=== PATIENT | male | born 1955 | race Caucasian/White ===

== ENCOUNTER 2017-06-26 06:33 | Day surgery (SDC) | payer BC, MEDICARE ==
[~2017-06-26 06:33] MED LIST: ACETAMINOPHEN 1,000 MG/100 ML BTL IV ONE
[2017-06-26] MEDS ORDERED: LIDOCAINE PF 0.5% (5MG/ML) 50ML VIAL IV ONE (06:34)
[2017-06-26] MEDS ORDERED: PROPOFOL 10 MG/ML VIAL IV ONE (06:34)
[2017-06-26] MEDS ORDERED: CLINDAMYCIN 600MG/50ML PREMIX 600 MG/50 ML BAG IVPB ONE (06:34)
[2017-06-26] MEDS ORDERED: MIDAZOLAM HCL 2MG/2ML VIAL IV ONE (06:34)
[2017-06-26] MEDS ORDERED: *PACU ONLY* KETAMINE HCL 10 MG/ML (20ML) VIAL IV ONE (06:34)
[2017-06-26 07:06] LABS: BLOOD UREA NITROGEN 12 mg/dL (8-23); EST GLOMERULAR FILTRATION RATE > 60 mL/min; GLUCOSE,RANDOM 101 mg/dL (74-109)
--- NOTE | 2017-06-26 13:20 | Operative Note ---
DATE OF SURGERY: 06/26/2017 Surgeon: Israel Daugherty D.O. REFERRING PHYSICIAN: Soha Carlos D.O. PREOPERATIVE DIAGNOSIS: Carpal tunnel syndrome of the left wrist. POSTOPERATIVE DIAGNOSIS: Carpal tunnel syndrome of the left wrist. OPERATION: Decompression left median nerve of the wrist using 3.5 loupe magnification. PROCEDURE: This 62-year-old male was taken to the operating room and placed in the supine position on the operating room table. Waterman block anesthesia was induced, and the left upper extremity was elevated. It was prepped with Hibiclens and draped in the usual sterile fashion. Before the Waterman block anesthesia, the tourniquet had been inflated to 250 mm Hg. A palmar incision was utilized following the hypothenar crease from the level of the base of the web space of the thumb to the flexor crease of the wrist and resection was carried down to the skin and subcutaneous tissue. Hemostasis was obtained with electrocautery. The palmar fascia was divided in line with the skin of the incision. The flexor retinaculum was identified, punctured, and split to its proximal margin with the contents of the carpal tunnel noted under direct vision. The transverse carpal ligament was then transected along its ulnar border, and the radial flap was raised to expose the entire median nerve under the transverse carpal ligament. The recurrent motor branch in the median nerve was identified and found to be normal. The wound was irrigated and, again, hemostasis was obtained with electrocautery, and the wound closed with interrupted 6-0 nylon suture. Sterile dressings were applied with plaster splint immobilization with the wrist in slight dorsiflexion and found in an adducted position. GROSS PATHOLOGY: This patient's median nerve appeared relatively normal on gross examination. [facility]
== END 2017-06-26 10:45 | disposition home or self-care (01) ==
LOC: SUR 06:33
PROVIDERS: ATTEND Orthopaedic Surgery
DX: G56.02 Carpal tunnel syndrome, left upper limb (principal); I48.91 Unspecified atrial fibrillation; Z79.01 Long term (current) use of anticoagulants; E11.9 Type 2 diabetes mellitus without complications; Z79.84 Long term (current) use of oral hypoglycemic drugs; E78.00 Pure hypercholesterolemia, unspecified; E03.9 Hypothyroidism, unspecified; Z95.810 Presence of automatic (implantable) cardiac defibrillator
CPT/HCPCS: 80048; J3490

== ENCOUNTER 2017-07-19 17:08 | Emergency (ER) | payer BC, MEDICARE ==
--- NOTE | 2017-07-19 17:35 | Emergency Department Record ---
History of Present Illness - General Chief Complaint: Abdominal Pain Stated Complaint: STOMACH CRAMPS Time Seen by Provider: 07/19/17 17:30 Source: Patient, Family Mode of Arrival: Ambulatory Limitations: No limitations - History of Present Illness Initial Comments: 62 yo male presents with mid abdominal pain, poor appetite, nausea and vomiting. The patient and his family report that he had had some nausea and vomiting with eating over the last two weeks. Starting 2 days ago he developed mid to lower abdominal pain with the with his symptoms. The pain has become constant at this point in time. No fever. He is urinating and having bowel movements. He has a history of gall bladder removal and gastric bypass (2007 - does not recall his surgeons). PCP is Dr He at [facility]. Complaint: Abdominal pain Onset/Timin -: Days(s) Location: Periumbilical Radiation: None Severity: Severe Quality: Other Consistency: Constant Improves With: Nothing Worsens With: Nothing Associated Symptoms: Nausea Treatments Prior to Arrival: Other - Related Data Home Medications Medication Instructions Recorded Confirmed Last Taken Hydrocodone/Acetaminophen [Weir 1 tab PO Q6H PRN 07/19/17 07/19/17 Unknown 5mg/325mg] Lidocaine Patch [Lidoderm] 1 ea TOP ASDIR 07/19/17 07/19/17 07/19/17 Simvastatin [Zocor] 20 mg PO DAILY 07/19/17 07/19/17 07/18/17 Trazodone HCl [Desyrel] 50 mg PO QHS 07/19/17 07/19/17 07/18/17 Allergies Allergy/AdvReac Type Severity Reaction Status Date / Time acetaminophen [From Vicodin] Allergy HIVES Verified 07/19/17 17:14 diazepam [From Valium] Allergy HIVES Verified 07/19/17 17:14 hydrocodone bitartrate Allergy HIVES Verified 07/19/17 17:14 [From Vicodin] Penicillins Allergy HIVES Verified 07/19/17 17:14 clonazepam [From Klonopin] AdvReac NAUSEA Verified 07/19/17 17:14 Travel Screening - Travel/Exposure Within Last 30 Days Have you traveled within the last 30 days?: No - Travel/Exposure Within Last Year Have you traveled outside the [place] in the last year?: No - Additonal Travel Details Have you been exposed to anyone with a communicable illness?: No - Travel Symptoms Symptom Screening: None Review of Systems Constitutional: Reports: Malaise, Weakness. Denies: Chills, Fever Eyes: Denies: Eye discharge, Eye pain, Photophobia, Vision change ENT: Denies: Congestion, Throat pain Respiratory: Denies: Cough, Dyspnea, Hemoptysis, Stridor, Wheezes Cardiovascular: Denies: Chest pain, Palpitations, Syncope Endocrine: Denies: Fatigue Gastrointestinal: Reports: As per HPI, Abdominal pain, Nausea, Vomiting. Denies : Constipation, Diarrhea, Hematemesis, Hematochezia, Melena Genitourinary: Denies: Dysuria, Frequency, Hematuria Musculoskeletal: Denies: Arthralgia, Back pain, Neck pain Skin: Denies: Bruising, Change in color, Rash Neurological: Denies: Headache, Numbness, Weakness Psychiatric: Denies: Anxiety Hematological/Lymphatic: Denies: Blood Clots, Easy bleeding, Easy bruising, Swollen glands Past Medical History - SOCIAL HISTORY Smoking Status: Never smoker Alcohol Use: None Drug Use Detail:: Marijuana - RESPIRATORY Hx Respiratory Disorders: Yes Hx Bronchitis: Yes (hx) Hx Pneumonia: Yes (hx) Hx Sleep Apnea: Yes Hx of CPAP: No - CARDIOVASCULAR Hx Cardio Disorders: Yes Hx Abnormal EKG: Yes Hx CHF: Yes (in past) Hx Heart Attack: Yes (19 years) Hx Hypertension: Yes Hx Irregular Heartbeat: Yes (not sure what abnormal rhythm/ afib) Hx Pacemaker/Defib: Yes (2012 pt has blood clot behind defib. found after gallbladder sx.) Hx Coronary Artery Disease: Yes Comment:: had ICD checked 9-17-15 pacer had gone off 3 times. - NEURO Hx Neuro Disorders: Yes Hx Neuropathy: Yes (bilat legs and hands) Hx TIA: Yes (affected vision 2006) - GI Hx GI Disorders: Yes Hx Wt Loss/Wt Gain: Yes (280 lb wt loss since bypass) - Hx Genitourinary Disorders: No - ENDOCRINE Hx Endocrine Disorders: Yes Hx Diabetes: Yes Hx Thyroid Disease: Yes Comment:: does not check at home; blood work only - MUSCULOSKELETAL Hx Musculoskeletal Disorders: Yes Hx Arthritis: Yes (DDD) Hx Fibromyalgia: Yes Hx Osteoporosis: Yes Comment:: chronic low back and leg pain - PSYCH Hx Psych Problems: Yes Hx Anxiety: Yes Hx Depression: Yes Hx Emotional Abuse: No Hx Suicide Attempt: Yes (early 2016) - HEMATOLOGY/ONCOLOGY Hx Hematology/Oncology Disorders: Yes Hx Bruising: Yes Hx Cancer: Yes (leukemia in remission CA free) Hx Chemotherapy: Yes Hx Clotting Problems: Yes (clot behind defib [id number] ; no longer on blood thinners) Family Medical History Any Significant Family History?: Yes Hx Heart Disease: Mother Hx Kidney Disease: Father Hx Liver Disease: Brother/Sister *Liver Comment: hep b Physical Exam - General General Appearance: Alert, Oriented x3, Cooperative, No acute distress Limitations: No limitations - Head Head exam: Atraumatic, Normocephalic, Normal inspection - Eye Eye exam: Normal appearance. negative: Conjunctival injection, Periorbital swelling, Scleral icterus - ENT ENT exam: Normal exam Ear exam: Normal external inspection Nasal Exam: Normal inspection Mouth exam: Normal external inspection - Neck Neck exam: Normal inspection - Respiratory Respiratory exam: Normal lung sounds bilaterally. negative: Respiratory distress - Cardiovascular Cardiovascular Exam: Regular rate, Normal rhythm, Normal heart sounds Peripheral Pulses: 2+: Radial (R), Radial (L) - GI/Abdominal GI/Abdominal exam: Soft, Tenderness, Other (The abdominal examination is very soft but tender. He is diffusely tender. He states he is most tender in the area around and below the umbilicus) - Rectal Rectal exam: Deferred - exam: Deferred - Extremities Extremities exam: Normal inspection, Full ROM, Normal capillary refill. negative: Tenderness - Back Back exam: Reports: Normal inspection, Full ROM. Denies: CVA tenderness (R), CVA tenderness (L), Muscle spasm, Rash noted, Tenderness - Neurological Neurological exam: Alert, Normal gait, Oriented X3 - Psychiatric Psychiatric exam: Normal affect, Normal mood - Skin Skin exam: Dry, Intact, Normal color, Warm Course Vital Signs 07/19/17 07/19/17 17:17 17:20 Temperature 98.2 F 98.2 F Pulse Rate [ 88 Pulse Ox Probe] Respiratory 20 20 Rate Blood Pressure 150/115 [Right Arm] Pulse Ox 97 97 - Reevaluation(s) Reevaluation #1: 07/19/17 18:16 The CBC was reviewed No acute changes No acute changes on the CMP except BUN 30 The lactic acid is normal 07/19/17 19:[address] scan was signed out to Dr Gabino Refer to his chart for further documentation and disposition Medical Decision Making - Lab Data Result diagrams: 07/19/17 17:45 07/19/17 17:45 Disposition Disposition: Transfer Clinical Impression: Abdominal pain Qualifiers: Abdominal location: unspecified location Qualified Code(s): R10.9 - Unspecified abdominal pain Disposition: Acute Care Hospital Transfer Transfer To: [facility] Reason For Transfer: Abdominal pain consultation Accepting Physician: Patrick Time Discussed w/Accepting Physician: 21:00 Condition: (2) Stable Forms: Patient Portal Access Time of Disposition: 21:00 Quality - Quality Measures Quality Measures: N/A - Blood Pressure Screening Does Patient Have Any of the Following: No Blood Pressure Classification: Normal BP Reading Systolic Measurement: 115 Diastolic Measurement: 67 Screening for High Blood Pressure: < Normal BP, F/U Not Required > [G8783] Pre-Hypertensive Follow-up Interventions: Referral to alternative/primary care provider.
[2017-07-19] MEDS ORDERED: PANTOPRAZOLE SODIUM IV 40 MG VIAL IVP ONE (17:45)
[2017-07-19] MEDS ORDERED: 0.9 % SODIUM CHLORIDE 1,000 ML BAG IV ONE (17:45)
[2017-07-19] MEDS ORDERED: ONDANSETRON HCL IV 4 MG/2 ML VIAL IV ONE (17:45)
[2017-07-19] MEDS ORDERED: HYDROMORPHONE HCL 1 MG/ML SYRINGE IVP ONE ×2 (17:46→18:31)
[2017-07-19 18:06] LABS: EOS % 0.4 % (0-6); GRAN % 78.5 % (47-80); HEMATOCRIT 43.4 % (42.0-52.0); LYMPH % 14.2 % (16-45); MEAN CELL VOLUME 90.4 fl (81-97); MEAN CORPUSCULAR HEMOGLOBIN 31.3 pg (27-33); MEAN CORPUSCULAR HGB CONC 34.6 g/dl (32-36); MEAN PLATELET VOLUME 9.7 fl (7.4-10.4); MONO % 6.9 % (0-9); PLATELET COUNT 130 K/uL (130-400); RED CELL DISTRIBUTION WIDTH 13.2 % (11.5-14.5); WHITE BLOOD COUNT W/O DIFF 6.7 K/uL (4.2-12.2)
[2017-07-19 18:17] LABS: BLOOD UREA NITROGEN 30 mg/dL (8-23); EST GLOMERULAR FILTRATION RATE > 60 mL/min; INR 1.05; PARTIAL THROMBOPLASTIN TIME 24.7 SECONDS (24.5-39.1); PROTHROMBIN TIME (PATIENT) 11.4 SECONDS (9.5-12.1)
[2017-07-19 18:18] LABS: TOTAL PROTEIN 7.7 g/dL (6.6-8.7)
[2017-07-19 18:20] LABS: GLUCOSE,RANDOM 191 mg/dL (74-109)
[2017-07-19 18:22] LABS: ALT/SGPT 23 U/L (<41)
[2017-07-19 18:23] LABS: ALBUMIN 4.5 g/dL (4.0-5.0); ALKALINE PHOSPHATASE 95 U/L (40-129); AST/SGOT 47 U/L (10.0-50.0); LIPASE 27 U/L (13-60)
[2017-07-19 18:28] LABS: BILIRUBIN,DIRECT < 0.2 mg/dL (0-0.3)
[2017-07-19] MEDS ORDERED: ONDANSETRON HCL IV 4 MG/2 ML VIAL IVP ONE (18:31)
[2017-07-19] MEDS ORDERED: DIAZEPAM 5 MG/1 ML TUBX IVP ONE (18:53)
[2017-07-19] MEDS ORDERED: KETOROLAC 30 MG/ML VIAL IVP ONE (20:18)
--- NOTE | 2017-07-19 21:14 | Emergency Department Record ---
History of Present Illness - General Chief Complaint: Abdominal Pain Stated Complaint: STOMACH CRAMPS Time Seen by Provider: 07/19/17 17:30 Source: Patient, Family Mode of Arrival: Ambulatory Limitations: No limitations - History of Present Illness MD Complaint: Abdominal pain Onset/Timin -: Days(s) Location: Periumbilical Radiation: None Severity: Severe Quality: Other Consistency: Constant Improves With: Nothing Worsens With: Nothing Associated Symptoms: Nausea Treatments Prior to Arrival: Other - Related Data Home Medications Medication Instructions Recorded Confirmed Last Taken Hydrocodone/Acetaminophen [Erwin 1 tab PO Q6H PRN 07/19/17 07/19/17 Unknown 5mg/325mg] Lidocaine Patch [Lidoderm] 1 ea TOP ASDIR 07/19/17 07/19/17 07/19/17 Simvastatin [Zocor] 20 mg PO DAILY 07/19/17 07/19/17 07/18/17 Trazodone HCl [Desyrel] 50 mg PO QHS 07/19/17 07/19/17 07/18/17 Allergies Allergy/AdvReac Type Severity Reaction Status Date / Time acetaminophen [From Vicodin] Allergy HIVES Verified 07/19/17 17:14 diazepam [From Valium] Allergy HIVES Verified 07/19/17 17:14 hydrocodone bitartrate Allergy HIVES Verified 07/19/17 17:14 [From Vicodin] Penicillins Allergy HIVES Verified 07/19/17 17:14 clonazepam [From Klonopin] AdvReac NAUSEA Verified 07/19/17 17:14 Travel Screening - Travel/Exposure Within Last 30 Days Have you traveled within the last 30 days?: No - Travel/Exposure Within Last Year Have you traveled outside the [place] in the last year?: No - Additonal Travel Details Have you been exposed to anyone with a communicable illness?: No - Travel Symptoms Symptom Screening: None Review of Systems Constitutional: Reports: Malaise, Weakness. Denies: Chills, Fever Eyes: Denies: Eye discharge, Eye pain, Photophobia, Vision change ENT: Denies: Congestion, Throat pain Respiratory: Denies: Cough, Dyspnea, Hemoptysis, Stridor, Wheezes Cardiovascular: Denies: Chest pain, Palpitations, Syncope Endocrine: Denies: Fatigue Gastrointestinal: Reports: As per HPI, Abdominal pain, Nausea, Vomiting. Denies : Constipation, Diarrhea, Hematemesis, Hematochezia, Melena Genitourinary: Denies: Dysuria, Frequency, Hematuria Musculoskeletal: Denies: Arthralgia, Back pain, Neck pain Skin: Denies: Bruising, Change in color, Rash Neurological: Denies: Headache, Numbness, Weakness Psychiatric: Denies: Anxiety Hematological/Lymphatic: Denies: Blood Clots, Easy bleeding, Easy bruising, Swollen glands Past Medical History - SOCIAL HISTORY Smoking Status: Never smoker Alcohol Use: None Drug Use Detail:: Marijuana - RESPIRATORY Hx Respiratory Disorders: Yes Hx Bronchitis: Yes (hx) Hx Pneumonia: Yes (hx) Hx Sleep Apnea: Yes Hx of CPAP: No - CARDIOVASCULAR Hx Cardio Disorders: Yes Hx Abnormal EKG: Yes Hx CHF: Yes (in past) Hx Heart Attack: Yes (18 years) Hx Hypertension: Yes Hx Irregular Heartbeat: Yes (not sure what abnormal rhythm/ afib) Hx Pacemaker/Defib: Yes (2011 pt has blood clot behind defib. found after gallbladder sx.) Hx Coronary Artery Disease: Yes Comment:: had ICD checked 9-17-15 pacer had gone off 3 times. - NEURO Hx Neuro Disorders: Yes Hx Neuropathy: Yes (bilat legs and hands) Hx TIA: Yes (affected vision 2006) - GI Hx GI Disorders: Yes Hx Wt Loss/Wt Gain: Yes (280 lb wt loss since bypass) - Hx Genitourinary Disorders: No - ENDOCRINE Hx Endocrine Disorders: Yes Hx Diabetes: Yes Hx Thyroid Disease: Yes Comment:: does not check at home; blood work only - MUSCULOSKELETAL Hx Musculoskeletal Disorders: Yes Hx Arthritis: Yes (DDD) Hx Fibromyalgia: Yes Hx Osteoporosis: Yes Comment:: chronic low back and leg pain - PSYCH Hx Psych Problems: Yes Hx Anxiety: Yes Hx Depression: Yes Hx Emotional Abuse: No Hx Suicide Attempt: Yes (early 2016) - HEMATOLOGY/ONCOLOGY Hx Hematology/Oncology Disorders: Yes Hx Bruising: Yes Hx Cancer: Yes (leukemia in remission CA free) Hx Chemotherapy: Yes Hx Clotting Problems: Yes (clot behind defib [id number] ; no longer on blood thinners) Family Medical History Any Significant Family History?: Yes Hx Heart Disease: Mother Hx Kidney Disease: Father Hx Liver Disease: Brother/Sister *Liver Comment: hep b Physical Exam - General Limitations: No limitations Course Vital Signs 12/04/2707/19/17 07/19/17 17:17 17:20 18:24 Temperature 98.2 F 98.2 F Pulse Rate [ 88 77 Pulse Ox Probe] Respiratory 20 20 20 Rate Blood Pressure 150/115 188/113 [Right Arm] Pulse Ox 97 97 98 07/19/17 07/19/17 19:05 20:00 Temperature Pulse Rate [ 72 69 Pulse Ox Probe] Respiratory 16 14 Rate Blood Pressure 130/77 116/73 [Right Arm] Pulse Ox 97 92 L - Reevaluation(s) Reevaluation #1: 07/19/17 21:09 CT Abdomen and Pelvis with Oral Contrast: thickening of the wall of the gastric pouch suggesting gastritis no perforation, no obstruction No other acute process noted. Patient and family re-evaluated, pain is improved but remains at 6-7/10. Will initiate transfer to [facility] ED for surgical consultation. Reevaluation #2: 07/19/17 21:23 Case was discussed with Dr. Nguyen, will accept transfer for surgical consultation. Patient and family were updated on the plan of care and pending transfer. Medical Decision Making - Lab Data Result diagrams: 07/19/17 17:45 07/19/17 17:45 Lab Results 07/19/17 07/19/17 07/19/17 Range/Units 17:45 17:45 17:45 WBC 6.7 (4.2-12.2) K/uL RBC 4.80 (4.40-5.70) M/uL Hgb 15.0 (14.0-18.0) gm/dl Hct 43.4 (42.0-52.0) % MCV 90.4 (81-97) fl MCH 31.3 (27-33) pg MCHC 34.6 (32-36) g/dl RDW 13.2 (11.5-14.5) % Plt Count 130 (130-400) K/uL MPV 9.7 (7.4-10.4) fl Gran % 78.5 (47-80) % Lymphocytes % 14.2 L (16-45) % Monocytes % 6.9 (0-9) % Eosinophils % 0.4 (0-6) % Basophils % 0.0 (0-6) % PT 11.4 (9.5-12.1) SECONDS INR 1.05 APTT 24.70 (24.5-39.1) SECONDS Sodium 140 (136-145) mmol/L Potassium 3.9 (3.4-4.5) mmol/L Chloride 102 (98-107) mmol/L Carbon Dioxide 22.0 (22-29) mmol/L Anion Gap 16.0 (7-16) BUN 30 H (8-23) mg/dL Creatinine 1.0 (0.7-1.2) mg/dL Estimated GFR > 60 mL/min Random Glucose 191 H (74-109) mg/dL Lactic Acid (0.5-2.2) mmol/L Calcium 9.0 (8.8-10.2) mg/dL Total Bilirubin 0.90 (0.2-1.0) mg/dL Direct Bilirubin < 0.2 (0-0.3) mg/dL AST 47 (10.0-50.0) U/L ALT 23 (<41) U/L Alkaline Phosphatase 95 (40-129) U/L Total Protein 7.7 (6.6-8.7) g/dL Albumin 4.5 (4.0-5.0) g/dL Lipase 27 (13-60) U/L 07/19/17 Range/Units 17:45 WBC (4.2-12.2) K/uL RBC (4.40-5.70) M/uL Hgb (14.0-18.0) gm/dl Hct (42.0-52.0) % MCV (81-97) fl MCH (27-33) pg MCHC (32-36) g/dl RDW (11.5-14.5) % Plt Count (130-400) K/uL MPV (7.4-10.4) fl Gran % (47-80) % Lymphocytes % (16-45) % Monocytes % (0-9) % Eosinophils % (0-6) % Basophils % (0-6) % PT (9.5-12.1) SECONDS INR APTT (24.5-39.1) SECONDS Sodium (136-145) mmol/L Potassium (3.4-4.5) mmol/L Chloride (98-107) mmol/L Carbon Dioxide (22-29) mmol/L Anion Gap (7-16) BUN (8-23) mg/dL Creatinine (0.7-1.2) mg/dL Estimated GFR mL/min Random Glucose (74-109) mg/dL Lactic Acid 1.4 (0.5-2.2) mmol/L Calcium (8.8-10.2) mg/dL Total Bilirubin (0.2-1.0) mg/dL Direct Bilirubin (0-0.3) mg/dL AST (10.0-50.0) U/L ALT (<41) U/L Alkaline Phosphatase (40-129) U/L Total Protein (6.6-8.7) g/dL Albumin (4.0-5.0) g/dL Lipase (13-60) U/L Disposition Disposition: Transfer Clinical Impression: Abdominal pain Qualifiers: Abdominal location: unspecified location Qualified Code(s): R10.9 - Unspecified abdominal pain Disposition: Acute Care Hospital Transfer Transfer To: [facility] Reason For Transfer: Surgical consultation Accepting Physician: Patrick Time Discussed w/Accepting Physician: 21:24 Condition: (2) Stable Forms: Patient Portal Access Time of Disposition: 21:24 Quality - Quality Measures Quality Measures: N/A - Blood Pressure Screening Does Patient Have Any of the Following: No Blood Pressure Classification: Normal BP Reading Systolic Measurement: 115 Diastolic Measurement: 67 Screening for High Blood Pressure: < Normal BP, F/U Not Required > [G8783]
--- NOTE | 2017-07-19 23:00 | CT SCAN REPORT ---
EXAM: CT SCAN ABDOMEN/PELVIS W CONTRAST HISTORY: ABDOMINAL PAIN WITH NAUSEA AND VOMITING. SHARP STOMACH PAIN AND CRAMPING. HISTORY OF GASTRIC BYPASS SURGERY. TECHNIQUE: Standard CT imaging of the abdomen and pelvis was performed with oral and intravenous contrast. 100 mL of Omnipaque-300 were administered. COMPARISON: None. FINDINGS: There is mild dependent atelectasis within both lungs. The patient is status post gastric bypass surgery. There is nonspecific wall thickening of the gastric pouch. There is no obstruction or perforation. Oral contrast material has passed into the small bowel. The small bowel loops are normal in caliber. There are no associated inflammatory changes. There is no pneumoperitoneum or ascites. A tiny pericardial effusion is present. The liver parenchyma appears normal. There is mild intra and extrahepatic biliary prominence, which is likely physiologic status post cholecystectomy. The pancreas, spleen, and adrenal glands are normal. There is a 2 mm nonobstructing stone within the right kidney. The kidneys and ureters are otherwise normal. Atherosclerotic calcifications are present within the aorta with no aneurysm or dissection. There is no retroperitoneal lymphadenopathy. The colon and appendix are normal. The urinary bladder and prostate gland appear normal. A penile prosthesis is present. There is chronic compression of the L5 vertebral body with associated vertebroplasty cement. Degenerative changes are present within the spine. There are no acute osseous abnormalities. Electrical stimulator leads are present extending into the thoracic region. IMPRESSION: 1. NONSPECIFIC WALL THICKENING OF THE GASTRIC POUCH WITH NO EVIDENCE FOR PERFORATION OR OBSTRUCTION. THE APPEARANCE SUGGESTS MILD GASTRITIS. 2. THERE ARE NO OTHER ACUTE FINDINGS. 3. A 2 MM NONOBSTRUCTING STONE WITHIN THE RIGHT KIDNEY. 4. STATUS POST CHOLECYSTECTOMY. THERE IS MILD PROMINENCE OF THE INTRA AND EXTRAHEPATIC BILIARY TREE, WHICH IS LIKELY PHYSIOLOGIC STATUS POST CHOLECYSTECTOMY. 5. TINY PERICARDIAL EFFUSION. JOB NUMBER: [id number] [facility]
== END 2017-07-19 21:57 | disposition short-term general hospital (02) ==
LOC: ER 17:08
DX: R10.33 Periumbilical pain (principal); R11.2 Nausea with vomiting, unspecified; I10 Essential (primary) hypertension; I25.2 Old myocardial infarction; I50.9 Heart failure, unspecified; E11.9 Type 2 diabetes mellitus without complications; Z98.84 Bariatric surgery status
CPT/HCPCS: 99285 ×2; 96376; 96374; 96375; 96361; 83605; 83690; 85025; 85730; 85610; 80076; 80048; 74177; Q9967; J1885; J2405; J1170; C9113; J3360; J7030

== ENCOUNTER 2018-03-27 15:39 | Emergency (ER) | payer BC, MEDICARE ==
[2018-03-27] MEDS ORDERED: ONDANSETRON HCL IV 4 MG/2 ML VIAL IV ONE (15:58)
[2018-03-27] MEDS ORDERED: 0.9 % SODIUM CHLORIDE 1,000 ML BAG IV ONE (15:58)
[2018-03-27 16:06] LABS: BASO % 0.2 % (0-6); EOS % 1.2 % (0-6); GRAN % 76.7 % (47-80); HEMATOCRIT 43.4 % (42.0-52.0); LYMPH % 13.9 % (16-45); MEAN CELL VOLUME 89.5 fl (81-97); MEAN CORPUSCULAR HEMOGLOBIN 28.9 pg (27-33); MEAN CORPUSCULAR HGB CONC 32.3 g/dl (32-36); MEAN PLATELET VOLUME 9.6 fl (7.4-10.4); PLATELET COUNT 164 K/uL (130-400); RED BLOOD COUNT 4.85 M/uL (4.40-5.70); RED CELL DISTRIBUTION WIDTH 15.1 % (11.5-14.5)
--- NOTE | 2018-03-27 16:11 | Emergency Department Record ---
History of Present Illness - General Chief Complaint: Abdominal Pain Stated Complaint: ABD PAIN Time Seen by Provider: 03/27/18 15:58 Source: Patient, RN notes reviewed Mode of Arrival: Ambulatory - History of Present Illness Initial Comments: vomiting multiple times today and he states periumbilical pain and he has a soft abdomen and no rebound or rigidity and no pain on palpation. Multiple issues of abdominal pain and he has chronic pain which he has a back stimulator and uses marijuana two joints per day. Onset/Timin -: Days(s) Location: Periumbilical Radiation: None Severity: Moderate Severity scale (1-10): 10 Quality: Cramping Consistency: Constant Improves With: Nothing Worsens With: Nothing Associated Symptoms: Vomiting - Related Data Home Medications Medication Instructions Recorded Confirmed Last Taken Apixaban [Eliquis] 5 mg PO BID 03/27/18 03/27/18 03/27/18 Dicyclomine HCl [Bentyl] 10 mg PO Q8H 03/27/18 03/27/18 03/27/18 Escitalopram Oxalate [Lexapro] 20 mg PO QAM 03/27/18 03/27/18 03/27/18 Levothyroxine Sodium [Synthroid] 25 mcg PO DAILY 03/27/18 03/27/18 03/27/18 Lisinopril 10 mg PO QHS 03/27/18 03/27/18 03/26/18 Metoprolol Tartrate 25 mg PO DAILY 03/27/18 03/27/18 03/27/18 Mirtazapine 15 mg PO ASDIR 03/27/18 03/27/18 03/26/18 Quetiapine Fumarate [Seroquel] 300 mg PO QHS 03/27/18 03/27/18 03/26/18 Previous Rx's Medication Instructions Recorded Acetaminophen with Codeine 1 each PO Q4HR #15 tablet 03/27/18 [Tylenol with Codeine #3 Tablet] Promethazine HCl [Phenergan] 25 mg PO Q6HR #10 tablet 03/27/18 Allergies Allergy/AdvReac Type Severity Reaction Status Date / Time diazepam [From Valium] Allergy HIVES Verified 03/27/18 15:41 hydrocodone bitartrate Allergy HIVES Verified 03/27/18 15:41 [From Vicodin] Penicillins Allergy HIVES Verified 03/27/18 15:41 clonazepam [From Klonopin] AdvReac NAUSEA Verified 03/27/18 15:41 Travel Screening - Travel/Exposure Within Last 30 Days Have you traveled within the last 30 days?: No - Travel/Exposure Within Last Year Have you traveled outside the [place] in the last year?: No - Additonal Travel Details Have you been exposed to anyone with a communicable illness?: No - Travel Symptoms Symptom Screening: None Review of Systems Reviewed: No additional complaints except as noted below Constitutional: Reports: As per HPI. Denies: Chills, Fever, Malaise, Night sweats, Weakness, Weight change Eyes: Reports: As per HPI. Denies: Eye discharge, Eye pain, Photophobia, Vision change ENT: Reports: As per HPI. Denies: Congestion, Dental pain, Ear pain, Epistaxis , Hearing loss, Throat pain Respiratory: Reports: As per HPI. Denies: Cough, Dyspnea, Hemoptysis, Stridor, Wheezes Cardiovascular: Reports: As per HPI. Denies: Arrhythmia, Chest pain, Dyspnea on exertion, Edema, Murmurs, Orthopnea, Palpitations, Paroxysmal nocturnal dyspnea, Rheumatic Fever, Syncope Endocrine: Reports: As per HPI. Denies: Fatigue, Heat or cold intolerance, Polydipsia, Polyuria Gastrointestinal: Reports: As per HPI, Abdominal pain, Vomiting. Denies: Constipation, Diarrhea, Hematemesis, Hematochezia, Melena, Nausea Genitourinary: Reports: As per HPI. Denies: Dysuria, Frequency, Hematuria, Incontinence, Retention, Testicular pain, Testicular mass, Urgency Musculoskeletal: Reports: As per HPI. Denies: Arthralgia, Back pain, Gout, Joint swelling, Myalgia, Neck pain Skin: Reports: As per HPI. Denies: Bruising, Change in color, Change in hair/ nails, Lesions, Pruritus, Rash Neurological: Reports: As per HPI. Denies: Abnormal gait, Confusion, Headache, Numbness, Paresthesias, Seizure, Tingling, Tremors, Vertigo, Weakness Psychiatric: Reports: As per HPI. Denies: Anxiety, Auditory hallucinations, Depression, Homicidal thoughts, Suicidal thoughts, Visual hallucinations Hematological/Lymphatic: Reports: As per HPI. Denies: Anemia, Blood Clots, Easy bleeding, Easy bruising, Swollen glands Past Medical History - SOCIAL HISTORY Smoking Status: Never smoker Alcohol Use: Rare Drug Use: Heavy Drug Use Detail:: Marijuana - RESPIRATORY Hx Respiratory Disorders: Yes Hx Bronchitis: Yes (hx) Hx Pneumonia: Yes (hx) Hx Sleep Apnea: Yes Hx of CPAP: No - CARDIOVASCULAR Hx Cardio Disorders: Yes Hx Abnormal EKG: Yes Hx Chest Pain: Yes (r/t anxiety) Hx CHF: Yes (in past) Hx Heart Attack: Yes (18 years) Hx Hypertension: Yes (on meds good control) Hx Irregular Heartbeat: Yes (not sure what abnormal rhythm/ afib) Hx Pacemaker/Defib: Yes (2011 pt had blood clot behind defib.double defib 2008) Hx Coronary Artery Disease: Yes Comment:: had ICD checked 1 month ago - NEURO Hx Neuro Disorders: Yes Hx Neuropathy: Yes (bilat legs and hands) Hx TIA: Yes (affected vision 2006) - GI Hx GI Disorders: Yes Hx Wt Loss/Wt Gain: Yes (280 lb wt loss since gastric bypass 2007) - Hx Genitourinary Disorders: No Comment:: penile implant - ENDOCRINE Hx Endocrine Disorders: Yes Hx Diabetes: Yes Hx Thyroid Disease: Yes Comment:: does not check at home; doesnt know A1C - MUSCULOSKELETAL Hx Musculoskeletal Disorders: Yes Hx Arthritis: Yes (DDD) Hx Fibromyalgia: Yes Hx Osteoporosis: Yes Comment:: chronic low back and leg pain - PSYCH Hx Psych Problems: Yes Hx Anxiety: Yes (major) Hx Depression: Yes Hx Emotional Abuse: No Hx Suicide Attempt: Yes (early 2016) - HEMATOLOGY/ONCOLOGY Hx Hematology/Oncology Disorders: Yes Hx Bruising: Yes Hx Cancer: Yes (leukemia in remission CA free) Hx Chemotherapy: Yes Hx Clotting Problems: Yes (clot behind defib 2011) Family Medical History Any Significant Family History?: Yes Hx Heart Disease: Mother Hx Kidney Disease: Father Hx Liver Disease: Brother/Sister *Liver Comment: hep b Physical Exam - General General Appearance: Alert, Oriented x3, Cooperative, No acute distress - Head Head exam: Normal inspection - Eye Eye exam: Normal appearance, PERRL Pupils: Normal accommodation - ENT ENT exam: Normal exam, Mucous membranes moist, Normal external ear exam, Normal orophraynx, TM's normal bilaterally Ear exam: Normal external inspection. negative: External canal tenderness Nasal Exam: Normal inspection. negative: Discharge, Sinus tenderness Mouth exam: Normal external inspection, Tongue normal Teeth exam: Normal inspection. negative: Dental caries Throat exam: Normal inspection. negative: Tonsillar erythema, Tonsillar exudate - Neck Neck exam: Normal inspection, Full ROM. negative: Tenderness - Respiratory Respiratory exam: Normal lung sounds bilaterally. negative: Respiratory distress - Cardiovascular Cardiovascular Exam: Regular rate, Normal rhythm, Normal heart sounds - GI/Abdominal GI/Abdominal exam: Soft, Normal bowel sounds, Tenderness. negative: Distended, Guarding, Rebound - Rectal Rectal exam: Deferred - exam: Deferred - Extremities Extremities exam: Normal inspection, Full ROM, Normal capillary refill. negative: Tenderness - Back Back exam: Reports: Normal inspection, Full ROM. Denies: Muscle spasm, Rash noted, Tenderness - Neurological Neurological exam: Alert, Normal gait, Oriented X3, Reflexes normal - Psychiatric Psychiatric exam: Normal affect, Normal mood - Skin Skin exam: Dry, Intact, Normal color, Warm Course Vital Signs 03/27/18 15:50 Pulse Rate 75 Respiratory 24 Rate Blood Pressure 208/124 Pulse Ox 100 - Reevaluation(s) Reevaluation #1: 03/27/18 17:10 feeling better Reevaluation #2: feeling better 03/27/18 18:18 Medical Decision Making - Lab Data Result diagrams: 03/27/18 16:00 03/27/18 16:00 Disposition Clinical Impression: Gastroenteritis Vomiting Qualifiers: Vomiting type: unspecified Vomiting Intractability: non-intractable Nausea presence: with nausea Qualified Code(s): R11.2 - Nausea with vomiting, unspecified IBS (irritable bowel syndrome) Qualifiers: Irritable bowel syndrome type: without diarrhea Qualified Code(s): K58.9 - Irritable bowel syndrome without diarrhea Disposition: Home, Self-Care Condition: (1) Good Instructions: Gastroenteritis (ED) Additional Instructions: nothing by mouth today and tomorrow clear liquids and than bannans ,rice applesauce and toast follow up with family in 4 days Prescriptions: Acetaminophen with Codeine [Tylenol with Codeine #3 Tablet] 1 each PO Q4HR #15 tablet Promethazine HCl [Phenergan] 25 mg PO Q6HR #10 tablet Forms: Patient Portal Access Time of Disposition: 17:22 Quality - Quality Measures Quality Measures: N/A - Blood Pressure Screening Does Patient Have Any of the Following: No, Active Dx of HTN Blood Pressure Classification: Hypertensive Reading Systolic Measurement: 208 Diastolic Measurement: 124 Screening for High Blood Pressure: Patient Exclusion, Hx of HTN [[id number]]
[2018-03-27] MEDS ORDERED: PROMETHAZINE HCL 25 MG in 0.9 % SODIUM CHLORIDE 100ML 100 ML IVPB ONE (16:15)
[2018-03-27 16:18] LABS: BLOOD UREA NITROGEN 25 mg/dL (8-23); CREATININE 0.9 mg/dL (0.7-1.2); EST GLOMERULAR FILTRATION RATE > 60 mL/min
[2018-03-27 16:19] LABS: TOTAL PROTEIN 8.7 g/dL (6.6-8.7)
[2018-03-27 16:21] LABS: GLUCOSE,RANDOM 135 mg/dL (74-109)
[2018-03-27 16:23] LABS: ALT/SGPT 16 U/L (<41)
[2018-03-27 16:24] LABS: ALKALINE PHOSPHATASE 114 U/L (40-129); AST/SGOT 40 U/L (10.0-50.0); BILIRUBIN,DIRECT < 0.2 mg/dL (0-0.3); LIPASE 32 U/L (13-60)
[2018-03-27] MEDS ORDERED: LORAZEPAM 2 MG/ML VIAL IV ONE (16:53)
[2018-03-27] MEDS ORDERED: HYDROMORPHONE HCL 2 MG/ML VIAL IVP ONE (17:27)
[2018-03-27] MEDS ORDERED: 0.9 % SODIUM CHLORIDE 1000ML 1,000 ML IV SCH (17:30)
== END 2018-03-27 18:23 | disposition home or self-care (01) ==
LOC: ER 15:39
DX: K52.9 Noninfective gastroenteritis and colitis, unspecified (principal); R11.2 Nausea with vomiting, unspecified; K58.9 Irritable bowel syndrome, unspecified; R10.33 Periumbilical pain; I10 Essential (primary) hypertension; I25.2 Old myocardial infarction
CPT/HCPCS: 99284 ×2; 96365; 96375; 83690; 85025; 80076; 80048; J2405; J1170; J2060; J2550; J7030

== ENCOUNTER 2018-06-03 07:25 | Day surgery (SDC) | payer BC, MEDICARE ==
--- NOTE | 2018-06-03 06:20 | History and Physical - [place] ---
CHIEF COMPLAINT/HISTORY OF CHIEF COMPLAINT: This patient presents with multiple region pain, the primary component is low back, hip and leg. His history is chronic. There has been no trauma. Diagnostics confirm diffuse disk space abnormalities with L4-L5 as the primary disk. Due to the failure of conservative therapy including spinal cord stimulation, the patient presents today for a spinal opioid infusion trial with implanted catheter and Hydromorphone and Dilaudid. PAST MEDICAL HISTORY: Hypertension. PAST SURGICAL HISTORY: Arthroscopic knee surgery, kyphoplasty, and spinal cord stimulator implant. MEDICATIONS ON ADMISSION: List to be provided. ALLERGIES: List to be provided. FAMILY/PSYCHOSOCIAL HISTORY: Social history - Caffeine. Family history - Diabetes. SYSTEMS REVIEW: The patient is appropriate in no acute distress. The remainder of the systems review is positive for hypertension, peptic ulcer disease, diabetes Type 1, and degenerative arthritis. PHYSICAL EXAMINATION: Height and weight are not known. Vital signs are not available. HEENT: Within normal limits. LUNGS: Clear. HEART: Regular rate and rhythm. ABDOMEN: Nontender. MUSCULOSKELETAL: Examination of the musculoskeletal system shows diffuse tenderness about the lumbar spine. Range of motion does produce pain into both legs. There are currently no motor or sensory abnormalities, but pain circumferentially across L4 and L5. Ambulation - No assistive device utilized. NEUROLOGIC: Cranial nerves are intact. IMPRESSION: LUMBAR RADICULOPATHY, ICD-10 CODE M54.16 AND M54.17. PLAN: The patient is here for an implanted spinal catheter infusion trial with Hydromorphone to determine if the implantation of a permanent system can be of any value in pain control. The procedure will involve an epidural blood patch which may require an overnight stay. The potential risks, side effects, and complications have all been carefully reviewed and discussed. The patient understands and has agreed. JOB NUMBER: [id number] [facility]
[~2018-06-03 07:25] MED LIST changes: +CLINDAMYCIN 600MG/50ML PREMIX 600 MG/50 ML BAG IVPB ONE; +FAMOTIDINE 20MG TABLET PO ONE; +HYDROMORPHONE PF 2MG/ML AMP 0.008 MG in 0.9 % SODIUM CHLORIDE 10ML VIA 0.996 ML IV ONE; +HYDROMORPHONE PF 2MG/ML AMP 8 MG in 0.9 % SODIUM CHLORIDE 500ML 496 ML IV ONE; +MECLIZINE 25 MG TABLET PO ONE; +METOCLOPRAMIDE 10 MG TABLET PO ONE
[2018-06-03] MEDS ORDERED: FENTANYL PF 100MCG/2ML VIAL IV ONE (07:26)
[2018-06-03] MEDS ORDERED: MIDAZOLAM HCL 2MG/2ML VIAL IV ONE (07:26)
[2018-06-03] MEDS ORDERED: **ER** KETAMINE HCL 500MG/10ML VIAL IV ONE (07:26)
[2018-06-03] MEDS ORDERED: LIDOCAINE 2% MDV (20MG/ML) 20ML VIAL IV ONE (07:26)
[2018-06-03] MEDS ORDERED: PROPOFOL 10 MG/ML VIAL IV ONE (07:26)
[2018-06-03] MEDS ORDERED: BUPIVACAINE 0.5% W/EPI MPF 30 ML VIAL IVP ONE (07:26)
[2018-06-03] MEDS ORDERED: CLINDAMYCIN (PEDIATRIC DOSING) 150 MG/ML VIAL IVPB ONE (07:26)
[2018-06-03] MEDS ORDERED: LIDOCAINE 1% W/EPI 1:200,000 MPF 30ML SQ ONE (07:26)
[2018-06-03] MEDS ORDERED: RINGERS SOLUTION,LACTATED 1,000 ML IV SCH (10:27)
[2018-06-03] MEDS ORDERED: DIPHENHYDRAMINE HCL 25 MG CAPSULE PO PRN ×2 (10:27)
[2018-06-03] MEDS ORDERED: ACETAMINOPHEN 325 MG TAB PO PRN ×2 (10:27)
[2018-06-03] MEDS ORDERED: OXYCODONE/APAP 10MG-325MG TABLET PO PRN ×2 (10:27)
[2018-06-03] MEDS ORDERED: SENNOSIDES/DOCUSATE SODIUM UD CAPSULE PO PRN ×2 (10:27)
[2018-06-03] MEDS ORDERED: NALOXONE 0.4 MG/1 ML VIAL IVP PRN (10:27)
[2018-06-03] MEDS ORDERED: METOCLOPRAMIDE 10 MG TABLET PO PRN (10:27)
[2018-06-03] MEDS ORDERED: AL HYDROX/MAG HYDROX 30ML UD PO PRN (10:27)
[2018-06-03] MEDS ORDERED: HYDROMORPHONE HCL 2 MG/ML VIAL IM PRN ×2 (10:27)
[2018-06-03] MEDS ORDERED: METOCLOPRAMIDE HCL 10 MG/2 ML VIAL IVP PRN (10:27)
[2018-06-03] MEDS ORDERED: TEMAZEPAM 15 MG CAPSULE PO PRN ×2 (10:27)
[2018-06-03] MEDS ORDERED: HYDROCODONE/APAP 7.5/325MG TABLET PO PRN ×2 (10:27)
[2018-06-03] MEDS ORDERED: DIPHENHYDRAMINE HCL 50 MG/ML VIAL IVP PRN ×2 (10:27)
[2018-06-03] MEDS ORDERED: LORAZEPAM 0.5 MG TABLET PO PRN (10:31)
[2018-06-03] MEDS ORDERED: CLINDAMYCIN 600MG/50ML PREMIX 600 MG/50 ML BAG IVPB SCH (16:30)
[2018-06-03] MEDS ORDERED: PANTOPRAZOLE SODIUM 40 MG TABLET PO SCH (16:30)
[2018-06-03] MEDS ORDERED: QUETIAPINE FUMARATE 100 MG TABLET PO SCH (22:00)
[2018-06-03] MEDS ORDERED: MIRTAZAPINE 15 MG TABLET PO SCH (22:00)
[2018-06-03] MEDS ORDERED: SIMVASTATIN 20 MG TABLET PO SCH (22:00)
[2018-06-03] MEDS ORDERED: TRAZODONE 50 MG TABLET PO SCH (22:00)
[2018-06-03] MEDS ORDERED: SUCRALFATE 1 G/10 ML UD PO SCH (22:00)
[2018-06-03] MEDS ORDERED: METOPROLOL TART 25 MG TABLET PO SCH (22:00)
[2018-06-04] MEDS ORDERED: LEVOTHYROXINE SODIUM 25 MCG TABLET PO SCH (07:00)
[2018-06-04] MEDS ORDERED: ESCITALOPRAM 10 MG TABLET PO SCH (10:00)
[2018-06-04] MEDS ORDERED: METFORMIN 500 MG TABLET PO SCH (10:00)
[2018-06-04] MEDS ORDERED: LISINOPRIL 10 MG TABLET PO SCH (10:00)
--- NOTE | 2018-06-04 19:25 | Operative Note ---
DATE: 06/03/2018. PREOPERATIVE DIAGNOSIS: LUMBAR RADICULOPATHY, ICD-10 CODE M54.16 AND M54.17. PROCEDURES: 1. Fluoroscopically guided access into the spinal space at L3-4. Placement of thin-walled spinal catheter positioned at T12. 2. Diagnostic myelography with radiologic supervision and interpretation. 3. Injection of opioid with hydromorphone 0.004 mg into the spinal space. 4. Incision, subcutaneous dissection, and anchoring of spinal catheter to supraspinous fascia with anchoring device and nonabsorbable suture. 5. Incision, subcutaneous dissection, and creation of subcutaneous pouch at left flank, ultimately for placement of pump identified as Medtronic 20 mL programmable pump. 7. Tunneling between midline pouch and flank pouch extending spinal catheter to flank pouch. 8. Revision and resection of spinal catheter to a secondary catheter component and connector. Tunneling of secondary catheter component 6.0 cm superior exiting the skin. 9. Interface external catheter to external pump set to deliver hydromorphone 0.08 mg per day. 10. Closure of incisions with Vicryl for the fascia and running nylon for the skin. 11. Epidural blood patch at L4-5 with 20 mL of autologous blood with sterile technique from the left antecubital. 12. Placement of dressings securing catheter and all connections under sterile dressing. 13. Patient transported to the recovery room stable and flat with a pillow under the head and knees, showing no atypical pain patterns and full functionality of the extremities. SURGEON: Maurice Lang D.O. DESCRIPTION OF PROCEDURE: Intravenous lines, vital sign monitoring, and intravenous sedation. Sterile prep and sterile technique. Under imaging the spinal interspace at L3-4 was marked and infiltrated. A 20-gauge spinal needle , beveled with the long axis with a paramedian approach was used to gain entry into the spinal space. With cerebrospinal fluid flow, a thin-walled spinal catheter was advanced and positioned at T12. Contrasted myelogram was performed. The resulting flow characteristics were smooth and linear in the space confirming catheter position at the midline. A bolus of hydromorphone 0.004 mg was injected into the spinal space. The catheter was clamped and we still noted a cerebrospinal fluid leak. The needle was removed, and then the catheter was anchored to the supraspinous fascia with an anchoring device and nonabsorbable suture. At the left flank, the site picked ultimately by the patient for the pump, the skin was infiltrated. An incision was made and subcutaneous dissection was conducted to form a pouch of suitable size and depth for the pump. A tunneling tool was used to carry the spinal catheter into the flank pouch. The catheter was then resected and interfaced with the second catheter component by way of a connector. The second catheter component was tunneled 6.0 cm superior exiting the skin. The external catheter was then interfaced to an external pump which was set to deliver hydromorphone at 0.08 mg a day. The midline incision was closed with Vicryl for the fascia and a running nylon for the skin. The left flank incision was closed with running nylon. The epidural interspace at 4-5, one level below the dural puncture, was infiltrated. An 18-gauge Tuohy needle was placed with loss of resistance into the epidural space. A total of 20 mL of autologous blood was drawn with sterile technique from the left antecubital. The blood was placed onto the field maintaining sterility, and then an epidural blood patch was performed at this level with this blood. Dressings were applied securing the catheter and all connections and covering the incisions. The sterile dressing was then fully applied. The patient was turned supine and transported to the recovery room stable flat with a pillow under the head and knees. He was noted to have full functionality of the extremities. There was no unusual pain pattern. He was monitored until stable. He will be kept flat for four hours and then will be slowly elevated for one hour. He will be kept overnight for observation and will be discharged in the morning. DISCHARGE INSTRUCTIONS: 1. The sites are to remain clean and dry. No showering or bathing in any way that would result in loss of the dressings. If this happens, contact the clinic. 2. Standard medications to be resumed including the antibiotic Levaquin 500 mg once a day for 14 days. 3. The office is to contact the patient in 12 to 24 hours to set up an appointment time for his first increase within the next two to three days. He will have a total of three increases in the 14-day trial period. At that point , we will either implant the pump or remove the implanted catheter. 4. Spinal opioid side effects including respiratory depression, nausea, vomiting, constipation, urinary retention, lightheadedness, and rash have all been discussed and reviewed. 5. All other instructions were provided including numbers to contact with problems. JOB NUMBER: [id number] cc: Edmond Hoff
--- NOTE | 2018-06-05 23:11 | RADIOLOGY REPORT ---
EXAM: SPINE, 1 VIEW HISTORY: PAIN PUMP TRIAL. TECHNIQUE: Single frontal view of the thoracolumbar spine. COMPARISON: Spinal radiograph 05/03/2015, fluoroscopy 06/03/2018. FINDINGS: Partially seen generator device superimposing the left iliac wing. Stimulator leads superimpose the T8 through T10 vertebral bodies. Linear 20 mm metallic structure superimposes the left hemiabdomen. Partially seen cardiac leads. IMPRESSION: ABOVE. JOB NUMBER: [id number] [facility]
== END 2018-06-03 15:32 | disposition home or self-care (01) ==
LOC: SUR 07:25 → MEDSURG 10:31 → SUR 15:32
PROVIDERS: ATTEND Pain Medicine Interventional Pain Medicine
DX: M54.16 Radiculopathy, lumbar region (principal); M54.17 Radiculopathy, lumbosacral region; I10 Essential (primary) hypertension; E78.00 Pure hypercholesterolemia, unspecified; E11.9 Type 2 diabetes mellitus without complications; Z79.01 Long term (current) use of anticoagulants; I48.91 Unspecified atrial fibrillation; I50.9 Heart failure, unspecified; I25.2 Old myocardial infarction; M79.7 Fibromyalgia; Z95.0 Presence of cardiac pacemaker
CPT/HCPCS: 62350; 62362; 62273; 00630; 72020; Q9967; J3010; J1170; J7040

== ENCOUNTER 2018-06-10 07:57 | Day surgery (SDC) | payer BC, MEDICARE ==
--- NOTE | 2018-06-09 18:37 | History and Physical Report ---
DATE: 06/09/2018. CHIEF COMPLAINT AND HISTORY OF CHIEF COMPLAINT: This patient presents with an ongoing implanted spinal catheter infusion trial with hydromorphone. He has had greater than 75 percent pain control. Due to the failure of all therapies and the success of the trial, he presents today for implantation of a permanent system. PAST MEDICAL HISTORY: Hypertension. PAST SURGICAL HISTORY: Arthroscopic knee surgery, kyphoplasty, spinal cord stimulator implant. MEDICATIONS ON ADMISSION: To be provided. ALLERGIES: To be provided. SOCIAL HISTORY: Caffeine. FAMILY HISTORY: Diabetes. PHYSICAL EXAMINATION: General: Unavailable. Vital Signs: Not available. HEENT: Within normal limits. Lungs: Clear. Heart: Regular rate and rhythm. Abdomen: Nontender. Musculoskeletal: Examination of the musculoskeletal system shows the dressings in place for the implanted catheter trial. The external pump is identified and is functioning. The underlying pain pattern is bilateral low back and lower extremities. Motor and sensory field evaluation is intact. Neurologic: Cranial nerves are intact. IMPRESSION: 1. INTRACTABLE LUMBAR RADICULOPATHY, ICD-10 CODE M54.16 AND M54.17. 2. IMPLANTED SPINAL CATHETER INFUSION TRIAL WITH HYDROMORPHONE. PLAN: Due to the success of the trial and the failure of other therapies, he is here for a permanent implant. We will remove the external dressings and remove the external catheter and interface a new catheter from the pump, placed in the flank, into the indwelling catheter previously implanted. The procedure will be considered outpatient, although an overnight stay will be evaluated. The potential risks, side effects, and complications have been carefully reviewed and discussed. JOB NUMBER: [id number] cc: Edmond Hoff
[~2018-06-10 07:57] MED LIST changes: +HYDROMORPHONE HCL 0.04 GM in 0.9 % SODIUM CHLORIDE 10ML VIA 20 ML IV ONE; -HYDROMORPHONE PF 2MG/ML AMP 8 MG in 0.9 % SODIUM CHLORIDE 500ML 496 ML IV ONE
[2018-06-10] MEDS ORDERED: MIDAZOLAM HCL 2MG/2ML VIAL IV ONE (07:58)
[2018-06-10] MEDS ORDERED: BUPIVACAINE 0.5% W/EPI MPF 30 ML VIAL IVP ONE (07:58)
[2018-06-10] MEDS ORDERED: PROPOFOL 10 MG/ML VIAL IV ONE (07:58)
[2018-06-10] MEDS ORDERED: LIDOCAINE 1% W/EPI 1:200,000 MPF 30ML SQ ONE (07:58)
[2018-06-10] MEDS ORDERED: ESMOLOL HCL 100 MG/10 ML ML IVP ONE (07:58)
[2018-06-10] MEDS ORDERED: CLINDAMYCIN (PEDIATRIC DOSING) 150 MG/ML VIAL IVPB ONE (07:58)
[2018-06-10] MEDS ORDERED: LIDOCAINE 2% MDV (20MG/ML) 20ML VIAL IV ONE (07:58)
--- NOTE | 2018-06-11 20:53 | Operative Note ---
DATE OF SURGERY: 06/10/2018. PREOPERATIVE DIAGNOSES: 1. INTRACTABLE LUMBAR RADICULOPATHY, ICD-10 CODE = M54.16 AND M54.17. 2. IMPLANTED SPINAL CATHETER INFUSION TRIAL HYDROMORPHONE 0.08 MG PER DAY. 3. TWO-LEAD IMPLANTED SPINAL CORD STIMULATOR, INTERNAL GENERATOR, NONFUNCTIONAL. SURGERY: 1. FLUOROSCOPIC-GUIDED INCISION, SUBCUTANEOUS DISSECTION, AND CREATION OF SUBCUTANEOUS POUCH AT LEFT FLANK AT FOR PLACEMENT OF PUMP IDENTIFIED A MEDTRONIC 20 ML PROGRAMMABLE. 2. INCISION, SUBCUTANEOUS DISSECTION, AND REMOVAL OF EXTERNAL SPINAL CATHETER, RESECTING CATHETER AND PULLING AWAY FROM INCISION. 3. REVISION, RESECTION AND INTERFACE SECOND CATHETER COMPONENT BY WAY OF CONNECTOR. INTERFACE INDWELLING SPINAL CATHETER WITH SECOND CATHETER COMPONENT. 4. PLACEMENT OF 20 ML PROGRAMMABLE PUMP MEDTRONIC ON FIELD PRE-FILLED WITH HYDROMORPHONE 1 MG PER ML INTERFACED WITH REVISED SPINAL CATHETER. 5. PLACEMENT OF PUMP, CATHETER INTO POUCH AT LEFT FLANK SECURED TO POSTERIOR FASCIA WITH NONABSORBABLE SUTURE, THREE POINTS PUMP EYELETS. 6. PLACEMENT OF CURVED #24 GAUGE FIGUEROA NEEDLE INTO ACCESS PORT, ASPIRATION AND CLEARING CATHETER OF OPIOID AND CSF MIXTURE. 7. CLOSURE OF INCISION WITH VICRYL FOR FASCIA, KAREY FOR SKIN. 8. INCISION, SUBCUTANEOUS DISSECTION, AND REMOVAL OF PROGRAMMABLE GENERATOR LEFT POSTERIOR GLUTEAL MARGIN. 9. INCISION, SUBCUTANEOUS DISSECTION, AND REMOVAL OF TWO IMPLANTED SPINAL CORD STIMULATOR LEADS. 10. CLOSURE OF INCISIONS WITH VICRYL FOR FASCIA AND KAREY FOR SKIN. 11. PROGRAMMING OF PUMP TO DELIVER BY CONTINUOUS INFUSION HYDROMORPHONE AT 0.16 MG PER DAY. DRESSINGS PLACED. SURGEON: DESTINEE FRENCH D.O. ANESTHESIA: LOCAL SEDATION. ANESTHESIA PROVIDER: FARIHA GLASER INDICATIONS: This patient presents today for implantation of a permanent programmable pump after a successful implanted catheter trial with Hydromorphone. Along with this, he has an implanted two-lead spinal cord stimulator internal generator, which is nonfunctional and he is requesting it be removed. PROCEDURE: Intravenous line, vital sign monitoring, IV sedation, prepped draped sterile technique, patient positioned prone. Sterile prep, sterile technique. At the left flank, a site picked by the patient for the pump, skin infiltrated, incision made and subcutaneous dissection was conducted to form a pouch of suitable size and depth for the pump itself, a Medtronic 20 mL programmable. The indwelling spinal catheter/external catheter connection was identified and clamped, the connector cut, and the external catheter was removed by pulling away from the incision. The indwelling catheter was then resected and revised with a second catheter component by way of a connector. A pump was placed onto the field, 20 mL programmable Medtronic pre-filled with Hydromorphone 1 mg per mL was then interfaced with the revised catheter. Antibiotic irrigation and Bovie for hemostasis. The pump was placed into the flank pouch and secured to the posterior fascia with nonabsorbable suture at three points, pump eyelets. A curved Figueroa needle was then placed into the access port and 1 mL of catheter contents was aspirated clearing the catheter of opioid and CSF mixture. The incision for the pump was then closed using Vicryl for fascia and karey for skin. At the left posterior gluteal margin generator pouch infiltrated, incision made, and subcutaneous dissection was conducted to the generator. The generator was then exteriorized. Suture removed and it was cut from the indwelling leads. At the midline T12-L1 incision for the leads, skin infiltrated, incision made, and subcutaneous dissection was conducted to the anchoring suture. The leads were removed intact. All electrodes , 16, and two leads were accounted for. There were no anchors, only suture. Antibiotic irrigation and Bovie for hemostasis. The incisions were then closed with Vicryl for fascia and karey for skin. A water-impermeable dressing OPSITE with Telfa pads was placed over all incisions. The incisions had been closed with karey. He was transported to the Recovery Room stable with no side -effects from the procedure or the sedation. By his request, when fully awake and alert, he was prepared for discharge. DISCHARGE INSTRUCTIONS: 1. The sites are to remain clean and dry. He should not shower with these dressings. 2. The office will contact the patient over the next 24 to 48 hours to set up a time in the next 7 to 10 days for us to evaluate the sites. Until then, he should keep his activities low. 3. Standard medications will be resumed. He will be extended on his Cipro 500 mg twice a day for another 7 days. 4. All other instructions provided, numbers to contact if problems given. He was then prepared for discharge home. cc: MICHELLE Hoff JOB NUMBER: [id number] [facility]
== END 2018-06-10 12:50 | disposition home or self-care (01) ==
LOC: SUR 07:57
PROVIDERS: ATTEND Pain Medicine Interventional Pain Medicine
DX: M54.16 Radiculopathy, lumbar region (principal); M54.17 Radiculopathy, lumbosacral region; I10 Essential (primary) hypertension; E11.9 Type 2 diabetes mellitus without complications; E78.00 Pure hypercholesterolemia, unspecified
CPT/HCPCS: 62350; 62362; 63688; 63662; 01936; 62367; 93005; Q9967; J1170; C1755; C1776

== ENCOUNTER 2019-01-13 14:26 | Emergency (ER) | payer BC, MEDICARE ==
[2019-01-13] MEDS ORDERED: HYDROMORPHONE HCL 2 MG/ML VIAL IVP ONE ×2 (14:37→15:54)
[2019-01-13] MEDS ORDERED: ONDANSETRON HCL IV 4 MG/2 ML VIAL IV ONE (14:37)
--- NOTE | 2019-01-13 14:41 | Emergency Department Record ---
History of Present Illness - General Chief Complaint: Back Pain/Injury Stated Complaint: BACK PAIN Time Seen by Provider: 01/13/19 14:37 Source: Patient, EMS, RN notes reviewed - History of Present Illness Initial Comments: presented via EMS with severe low back pain and he has chronic pain issues and has a dilaudid pain pump through Dr Lang. Patient denies a fall and no abdominal pain no vomiting or diarrhea and he is sweating and the pain pumb refilled three weeks ago. MD Complaint: Back pain Onset/Timin -: Hour(s) Similar Symptoms Previously: Yes Place: Home Severity scale (1-10): 10 Quality: Other Consistency: Constant Improves With: None Worsens With: None Context: Unknown Associated Symptoms: Denies other symptoms - Related Data Home Medications Medication Instructions Recorded Confirmed Last Taken Tizanidine HCl 4 mg PO TID PRN 01/13/19 01/13/19 Unknown Allergies Allergy/AdvReac Type Severity Reaction Status Date / Time diazepam [From Valium] Allergy HIVES Verified 03/27/18 15:41 hydrocodone bitartrate Allergy HIVES Verified 03/27/18 15:41 [From Vicodin] Penicillins Allergy HIVES Verified 03/27/18 15:41 clonazepam [From Klonopin] AdvReac NAUSEA Verified 03/27/18 15:41 Travel Screening - Travel/Exposure Within Last 30 Days Have you traveled within the last 30 days?: No Review of Systems Reviewed: No additional complaints except as noted below Constitutional: Reports: As per HPI. Denies: Chills, Fever, Malaise, Night sweats, Weakness, Weight change Eyes: Reports: As per HPI. Denies: Eye discharge, Eye pain, Photophobia, Vision change ENT: Reports: As per HPI. Denies: Congestion, Dental pain, Ear pain, Epistaxis, Hearing loss, Throat pain Respiratory: Reports: As per HPI. Denies: Cough, Dyspnea, Hemoptysis, Stridor, Wheezes Cardiovascular: Reports: As per HPI. Denies: Arrhythmia, Chest pain, Dyspnea on exertion, Edema, Murmurs, Orthopnea, Palpitations, Paroxysmal nocturnal dyspnea, Rheumatic Fever, Syncope Endocrine: Reports: As per HPI. Denies: Fatigue, Heat or cold intolerance, Polydipsia, Polyuria Gastrointestinal: Reports: As per HPI. Denies: Abdominal pain, Constipation, Diarrhea, Hematemesis, Hematochezia, Melena, Nausea, Vomiting Genitourinary: Reports: As per HPI. Denies: Dysuria, Frequency, Hematuria, Incontinence, Retention, Testicular pain, Testicular mass, Urgency Musculoskeletal: Reports: As per HPI, Back pain. Denies: Arthralgia, Gout, Joint swelling, Myalgia, Neck pain Skin: Reports: As per HPI. Denies: Bruising, Change in color, Change in hair/nails, Lesions, Pruritus, Rash Neurological: Reports: As per HPI. Denies: Abnormal gait, Confusion, Headache, Numbness, Paresthesias, Seizure, Tingling, Tremors, Vertigo, Weakness Psychiatric: Reports: As per HPI. Denies: Anxiety, Auditory hallucinations, Depression, Homicidal thoughts, Suicidal thoughts, Visual hallucinations Hematological/Lymphatic: Reports: As per HPI. Denies: Anemia, Blood Clots, Easy bleeding, Easy bruising, Swollen glands Past Medical History - SOCIAL HISTORY Smoking Status: Never smoker - RESPIRATORY Hx Respiratory Disorders: Yes Hx Bronchitis: Yes (hx) Hx Pneumonia: Yes (hx) Hx Sleep Apnea: Yes Hx of CPAP: No - CARDIOVASCULAR Hx Cardio Disorders: Yes Hx Abnormal EKG: Yes Hx Chest Pain: No (denies) Hx CHF: Yes (in past) Hx Heart Attack: Yes (19 years) Hx Hypertension: Yes (on meds good control) Hx Irregular Heartbeat: Yes (not sure what abnormal rhythm/ afib) Hx Pacemaker/Defib: Yes (2011 pt had blood clot behind defib.double defib 2008) Hx Coronary Artery Disease: Yes Comment:: had ICD checked 1 month ago - NEURO Hx Neuro Disorders: Yes Hx Neuropathy: Yes (bilat legs and hands) Hx TIA: Yes (affected vision 2006) - GI Hx GI Disorders: Yes Hx Wt Loss/Wt Gain: Yes (280 lb wt loss since gastric bypass 2007) - Hx Genitourinary Disorders: No Comment:: penile implant - ENDOCRINE Hx Endocrine Disorders: Yes Hx Diabetes: Yes Hx Thyroid Disease: Yes Comment:: does not check at home; doesnt know A1C - MUSCULOSKELETAL Hx Musculoskeletal Disorders: Yes Hx Arthritis: Yes (DDD) Hx Fibromyalgia: Yes Hx Osteoporosis: Yes Comment:: chronic low back and leg pain - PSYCH Hx Psych Problems: Yes Hx Anxiety: Yes (major) Hx Depression: Yes Hx Emotional Abuse: No Hx Suicide Attempt: Yes (early 2016) - HEMATOLOGY/ONCOLOGY Hx Hematology/Oncology Disorders: Yes Hx Bruising: Yes Hx Cancer: Yes (leukemia in remission CA free) Hx Chemotherapy: Yes Hx Clotting Problems: Yes (clot behind defib 2011) Family Medical History Any Significant Family History?: Yes Hx Heart Disease: Mother Hx Kidney Disease: Father Hx Liver Disease: Brother/Sister *Liver Comment: hep b Physical Exam - General General Appearance: Alert, Oriented x3, Cooperative, No acute distress - Head Head exam: Normal inspection - Eye Eye exam: Normal appearance, PERRL Pupils: Normal accommodation - ENT ENT exam: Normal exam, Mucous membranes moist, Normal external ear exam, Normal orophraynx, TM's normal bilaterally Ear exam: Normal external inspection. negative: External canal tenderness Nasal Exam: Normal inspection. negative: Discharge, Sinus tenderness Mouth exam: Normal external inspection, Tongue normal Teeth exam: Normal inspection. negative: Dental caries Throat exam: Normal inspection. negative: Tonsillar erythema, Tonsillar exudate - Neck Neck exam: Normal inspection, Full ROM. negative: Tenderness - Respiratory Respiratory exam: Normal lung sounds bilaterally. negative: Respiratory distress - Cardiovascular Cardiovascular Exam: Regular rate, Normal rhythm, Normal heart sounds - GI/Abdominal GI/Abdominal exam: Soft, Normal bowel sounds. negative: Tenderness - Rectal Rectal exam: Deferred - exam: Deferred - Extremities Extremities exam: Normal inspection, Full ROM, Normal capillary refill. negative: Tenderness - Back Back exam: Reports: Normal inspection, Full ROM. Denies: Muscle spasm, Rash noted, Tenderness - Neurological Neurological exam: Alert, Normal gait, Oriented X3, Reflexes normal - Psychiatric Psychiatric exam: Normal affect, Normal mood - Skin Skin exam: Dry, Intact, Normal color, Warm Course Vital Signs 01/13/19 01/13/19 14:29 14:35 Pulse Rate [ 66 Pulse Ox Probe] Respiratory 22 Rate Blood Pressure 124/74 Pulse Ox 99 Medical Decision Making - Lab Data Result diagrams: 01/13/19 14:30 01/13/19 14:30 Disposition Clinical Impression: Lumbar strain Qualifiers: Encounter type: initial encounter Qualified Code(s): S39.012A - Strain of muscle, fascia and tendon of lower back, initial encounter Disposition: Home, Self-Care Condition: (1) Good Instructions: Low Back Strain (ED) Additional Instructions: follow up with family in 2-[address] Precious callahan for pain two pills three times a day Forms: Patient Portal Access Time of Disposition: 18:04 Quality - Quality Measures Quality Measures: N/A - Blood Pressure Screening Does Patient Have Any of the Following: No Blood Pressure Classification: Pre-Hypertensive BP Reading Systolic Measurement: 124 Diastolic Measurement: 74 Screening for High Blood Pressure: < Pre-Hypertensive BP, F/U Documented > [G8 950] Pre-Hypertensive Follow-up Interventions: Referral to alternative/primary care provider.
[2019-01-13 14:50] LABS: ABSOLUTE NEUTROPHIL COUNT 4.15; BASO % 0.2 % (0-6); EOS % 2.3 % (0-6); GRAN % 71.8 % (47-80); HEMATOCRIT 37.5 % (42.0-52.0); LYMPH % 19.8 % (16-45); MEAN CELL VOLUME 90.1 fl (81-97); MEAN CORPUSCULAR HEMOGLOBIN 28.8 pg (27-33); MEAN PLATELET VOLUME 9.5 fl (7.4-10.4); MONO % 5.9 % (0-9); PLATELET COUNT 185 K/uL (130-400); RED BLOOD COUNT 4.16 M/uL (4.40-5.70); RED CELL DISTRIBUTION WIDTH 14.4 % (11.5-14.5); WHITE BLOOD COUNT W/O DIFF 5.8 K/uL (4.2-12.2)
[2019-01-13 15:06] LABS: CREATININE 1.3 mg/dL (0.7-1.2)
[2019-01-13] MEDS ORDERED: DIAZEPAM (VALIUM) 5MG/ML **10ML VIAL IVP ONE (17:54)
[2019-01-13] MEDS ORDERED: ORPHENADRINE CITRATE 60MG/2ML VIAL IM ONE (17:57)
--- NOTE | 2019-01-15 08:26 | CT SCAN REPORT ---
EXAM: EMERGENCY CT SCAN OF THE ABDOMEN AND PELVIS WITHOUT CONTRAST HISTORY: BACK PAIN ON THE LEFT SIDE AND ABDOMINAL PAIN. PRIOR CT HISTORY SHEET INDICATES GASTRIC BYPASS SURGERY AND CHOLECYSTECTOMY WELL. TECHNIQUE: Axial CT scan of the abdomen and pelvis was obtained without oral or IV contrast. Comparison: CT of the abdomen and pelvis 07/19/17. FINDINGS: Postop changes in the region of the stomach as before consistent with the history of gastric bypass surgery, with some suture involving the jejunum as well also presumably related to the bypass procedure. The gallbladder is not identified consistent with the surgical history. There is dilatation of the upper common duct similar to before with less dilatation of the more distal aspect of the common duct today compared to the prior study. This currently seen dilatation is presumably just physiologic in nature related to the post cholecystectomy state although correlation with serum bilirubin is suggested. There is a new metallic battery pack in the subcutaneous tissues of the left back probably representing a pain pump device with the associated catheter entering the spinal canal at the L3-L4 level and ascending up to the T12 level. There is a single small calcification within the right kidney consistent with a currently nonobstructing intrarenal calculus. The left kidney is partially obscured by the dense metallic artifact related to the pain pump device, but no definite intrarenal calculi seen within the left kidney. There is no hydronephrosis or hydroureter on either side. As a result the ureters are somewhat difficult to follow in their nondilated state throughout the retroperitoneum and pelvis, but no definite ureteral calculus seen on either side and no bladder calculus evident. Penile prosthesis again partially seen with an apparent associated reservoir anteriorly in the subcutaneous tissues of the low right anterior pelvis as before. Evaluation of the bowel and viscera are considerably limited without oral or IV contrast. Given this limitation, no definite hepatic, splenic, adrenal, pancreatic, or renal mass identified. The appendix is probably identified as a normal caliber structure with no appendicitis evident. Prominent stool throughout much of the colon and clinical correlation as to constipation is suggested. Minor dependent atelectasis in the lung bases posteriorly. Reduction in the pericardial effusion previously seen anteriorly. No definite free intraperitoneal air or free intraperitoneal fluid identified. Chronic compression of the body of T5 with vertebroplasty at this level as before. IMPRESSION: 1. POSTOPERATIVE FINDINGS INCLUDING GASTRIC BYPASS SURGERY WITH ASSOCIATED JEJUNAL ANASTOMOSIS, CHOLECYSTECTOMY WITH SOME DILATATION OF THE COMMON DUCT PRESUMABLY JUST PHYSIOLOGIC RELATED TO THE POST CHOLECYSTECTOMY STATE DESCRIBED ABOVE, PENILE PROSTHESIS WITH ASSOCIATED RESERVOIR IN THE SUBCUTANEOUS TISSUES OF THE LOW ANTERIOR RIGHT PELVIC WALL, PAIN PUMP DEVICE IN THE SUBCUTANEOUS TISSUES OF THE LEFT BACK WITH THE ASSOCIATED CATHETER EXTENDING UP TO THE T12 LEVEL, AND VERTEBROPLASTY OF L5 WITH CHRONIC COMPRESSION OF THIS VERTEBRA BEFORE. 2. SINGLE SMALL NONOBSTRUCTING CALCULUS RIGHT KIDNEY. NO DEFINITE HYDRONEPHROSIS OR URETERAL CALCULUS ON EITHER SIDE. 3. PROMINENT AMOUNT OF STOOL RAISING THE POSSIBILITY OF THE CONSTIPATION AND CLINICAL CORRELATION IS SUGGESTED. 4. REGRESSION IN PERICARDIAL EFFUSION PREVIOUSLY SEEN. JOB NUMBER: [id number] [facility]
== END 2019-01-13 18:45 | disposition home or self-care (01) ==
LOC: ER 14:26
DX: S39.012A Strain of muscle, fascia and tendon of lower back, initial encounter (principal); X58.XXXA Exposure to other specified factors, initial encounter; Y92.009 Unspecified place in unspecified non-institutional (private) residence as the place of occurrence of the external cause; E11.9 Type 2 diabetes mellitus without complications; I10 Essential (primary) hypertension; I25.2 Old myocardial infarction; I50.9 Heart failure, unspecified
CPT/HCPCS: 99284 ×2; 96376; 96374; 96372; 96375; 85025; 80048; 74176; J2405; J1170; J3360; J2360